=== PATIENT | female | born 1940 | race Caucasian/White ===

== ENCOUNTER 2019-01-29 06:51 | Day surgery (SDC) | payer MEDICARE ==
[2019-01-29] MEDS ORDERED: CYCLOPENTOLATE 1% OPHTH DROPS 2 ML ONE (07:12)
[2019-01-29] MEDS ORDERED: KETOROLAC 0.45% OPHTH DROPS ONE (07:12)
[2019-01-29] MEDS ORDERED: PHENYLEPHRINE 2.5% OPHTH 2 ML DROPS ONE (07:12)
[2019-01-29] MEDS ORDERED: PROPARACAINE 0.5% OPHTH DROPS 15 ML ONE (07:13)
[2019-01-29] MEDS ORDERED: LACTATED RINGERS 500 ML IV ONE (07:18)
[2019-01-29] MEDS ORDERED: PHENYLEPHRINE 2.5% OPHTH 2 ML DROPS LEFTEYE ONE (07:30)
[2019-01-29] MEDS ORDERED: KETOROLAC 0.45% OPHTH DROPS LEFTEYE ONE (07:30)
[2019-01-29] MEDS ORDERED: PROPARACAINE 0.5% OPHTH DROPS 15 ML LEFTEYE ONE (07:30)
[2019-01-29] MEDS ORDERED: CYCLOPENTOLATE 1% OPHTH DROPS 2 ML LEFTEYE ONE (07:30)
--- NOTE | 2019-01-29 08:03 | ANESTHESIA ---
Pre-Anesthesia VS, & Labs - Diagnosis nuclear sclerotic cataract - Procedure left cataract ectraction with intraocular lens Vital Signs: Temp Pulse Resp BP Pulse Ox 36.5 C 60 18 128/67 94 01/29/19 07:27 01/29/19 07:27 01/29/19 07:27 01/29/19 07:27 01/29/19 07:27 Height 5 ft 3 in Weight (kg) 99 kg - NPO >8 hours - Is Patient ?: No Home Medications and Allergies Home Medications: Ambulatory Orders Fexofenadine HCl [Karina Allergy] 180 mg PO DAILY 01/28/19 Fluticasone 44 Mcg [Flovent] 1 puffs PO DAILY 01/28/19 hydroCHLOROthiazide [Hydrochlorothiazide] 25 mg PO DAILY 01/28/19 Fexofenadine HCl [Karina Allergy] 180 mg PO DAILY 01/28/19 Fluticasone 44 Mcg [Flovent] 1 puffs PO DAILY 01/28/19 hydroCHLOROthiazide [Hydrochlorothiazide] 25 mg PO DAILY 01/28/19 Anes History & Medical History - Anesthetic History Anesthesia Complications: reports: No previous complications - Medical History Cardiovascular: reports: Hypertension Pulmonary: reports: Asthma Gastrointestinal: reports: None Urinary: reports: None Musculoskeletal: reports: Osteoarthritis Skin: reports: Other - Surgical History General: Other Eyes Ears Nose Throat (EENT): Cataracts Exam General: Alert Dental: WNL, Dentures full Upper, Dentures full Lower Mouth Opening: Greater than 4 Fingerbreadths Mallampati classification: II Thyromental Distance: greater than 6 cm Respiratory: Lungs clear Cardiovascular: Regular rate, Normal S1, Normal S2 Mental/Cognitive Status: Alert/Oriented X3 Plan Anesthesia Type: MAC Consent for Procedure(s) Verified and Reviewed: Yes Code Status: Attempt Resuscitation ASA classification: 2-Mild systemic disease Is this case an emergency?: Yes
[2019-01-29] MEDS ORDERED: MIDAZOLAM 2 MG/2 ML VIAL IVP ONE (08:29)
[2019-01-29] MEDS ORDERED: BRIMONIDINE 0.2% OPHTH DROPS 5 ML OPTH ONE (08:35)
[2019-01-29] MEDS ORDERED: EPINEPHrine 1 MG/ML AMP IVP ONE (08:36)
[2019-01-29] MEDS ORDERED: CHONDR SULF/HYALURONATE SYRINGE IO ONE (08:36)
[2019-01-29] MEDS ORDERED: TRIAMCIN/MOXIFLOX OPHTHALMIC 0.6 ML VIAL IO ONE ×2 (08:37→09:53)
[2019-01-29] MEDS ORDERED: BSS/LIDOCAINE/EPINEPHRINE 1 ML SYRINGE IO ONE (08:37)
[2019-01-29] MEDS ORDERED: TIMOLOL 0.5% OPHTH DROPS OPTH ONE (08:37)
[2019-01-29] MEDS ORDERED: VANCOMYCIN OPHTHALMI 8MG/0.8ML 8 MG/0.8 ML SYRINGE IO ONE ×2 (08:38→09:56)
[2019-01-29 09:03] VITALS: BP 121/60
--- NOTE | 2019-01-29 09:16 | OPERATIVE REPORT ---
DATE OF SERVICE: 01/29/2019 Physician: Bean Barfield MD PREOPERATIVE DIAGNOSIS: Visually significant cataract, left eye. Cataract surgery was performed on the right eye in 2016 elsewhere. POSTOPERATIVE DIAGNOSIS: Visually significant cataract, left eye. Cataract surgery was performed on the right eye in 2016 elsewhere. PROCEDURE: Phacoemulsification with posterior chamber intraocular lens implant, left eye. SURGEON: Bean Barfield MD ANESTHESIA: Monitored anesthesia care. COMPLICATIONS: None. OPERATIVE INDICATIONS: This is a 78-year-old woman with progressive vision loss in the left eye due to a 2+ nuclear sclerotic, 2+ cortical and trace posterior subcapsular cataract. Best corrected visual acuity was 20/30, with glare to hand motion vision in the left eye. Indications for surgery are overall decrease in vision, difficulty seeing words, closed caption or game scores on TV, difficulty driving in low light or at night and difficulty driving at night because of headlights from other vehicles. She was consented at length concerning risks and benefits of cataract surgery, after which she expressed a desire to proceed with surgery. OPERATIVE PROCEDURE: Patient was taken into OR #3 and placed under monitored anesthesia care. A surgical timeout was conducted confirming correct patient, correct procedure, and correct surgical site. She was given topical anesthesia, and prepped and draped in the usual sterile fashion. The eye was entered at the 6 and 3 o'clock positions. Intracameral Shugarcaine was injected into the anterior chamber, followed by Viscoat. A continuous-tear curvilinear capsulorrhexis was performed. Nucleus was hydrodissected and phacoemulsified. The cortex was evacuated using automated infusion and aspiration. Provisc was injected in the capsular bag, and a 20.0 diopter intraocular lens inserted in the bag. I and A was used to evacuate the viscoelastic materials. The eye was inflated to physiologic pressure using balanced salt solution and found to be watertight. Approximately 0.25 mL of a mixture of triamcinolone and moxifloxacin was injected transsclerally into the vitreous in the inferotemporal quadrant. An additional 0.55 mL of a mixture of triamcinolone, moxifloxacin and vancomycin was injected subconjunctivally in the superior quadrant for infection and inflammation prophylaxis. Wound integrity was checked with the Weck-Lanie sponges. Patient was taken into operating room in good condition and given postoperative instructions. TD: 01/29/2019 08:57 RENEE
[2019-01-29] MEDS ORDERED: EPINEPHrine 1 MG/ML AMP ONE (09:52)
[2019-01-29] MEDS ORDERED: BRIMONIDINE 0.2% OPHTH DROPS 5 ML ONE (09:52)
[2019-01-29] MEDS ORDERED: TIMOLOL 0.5% OPHTH DROPS ONE (09:53)
[2019-01-29] MEDS ORDERED: BSS/LIDOCAINE/EPINEPHRINE 1 ML SYRINGE ONE (09:54)
== END 2019-01-29 06:52 | disposition home or self-care (01) ==
LOC: SDS 06:51
PROVIDERS: ATTEND Ophthalmology
PROC: 08RK3JZ Replacement of Left Lens with Synthetic Substitute, Percutaneous Approach (ICD-10-PCS; principal; 2019-01-29 08:30)
DX: H25.812 Combined forms of age-related cataract, left eye (principal); I10 Essential (primary) hypertension; J45.909 Unspecified asthma, uncomplicated; Z79.899 Other long term (current) drug therapy; Z98.41 Cataract extraction status, right eye; Z79.51 Long term (current) use of inhaled steroids
CPT/HCPCS: 66984; A9270; J3490; V2632